=== PATIENT | male | born 1980 | race Caucasian/White ===

== ENCOUNTER 2019-03-23 12:39 | Outpatient (CLI) | payer BC, SELFPAY ==
--- NOTE | 2019-03-23 13:12 | DI.RAD_ITS ---
EXAM: XR LUMBAR SPINE COMPLETE CLINICAL HISTORY: LOW BACK PAIN M54.5 TECHNIQUE: COMPARISON: LUMBAR SPINE COMPLETE from 10/22/2015 FINDINGS: Five views were obtained. The SI joints are well maintained bilaterally. No evidence of spondylolys is or spondylolisthesis. Loss of disc space height noted at L4-5 and L5-S1. Prominent hypertrophic spurring of the endplates also noted at these levels. Moderate facet hypertrophic degenerative paulino es noted throughout the lumbar region. IMPRESSION: Degenerative changes as described above, most prominent at L4-5 and L5-S1.
== END 2019-03-23 12:59 ==
PROVIDERS: PCP Nurse Practitioner Family; Visit Provider Nurse Practitioner Family
DX: M54.5 Low back pain (principal); M47.817 Spondylosis without myelopathy or radiculopathy, lumbosacral region
CPT/HCPCS: 72110

== ENCOUNTER → 2023-02-07 16:25 | Outpatient (CLI) | payer BC, SELFPAY ==
--- NOTE | 2023-02-07 | DI.RAD_ITS ---
Exam(s) XR FOOT RT COMPLETE EXAM: XR FOOT RT COMPLETE CLINICAL HISTORY: RT FOOT PAIN, M79.671, TENDERNESS AND BRUISING AT BASE OF 5TH METATARSAL. TECHNIQUE: 2D digital imaging was performed. COMPARISON: No exams were available for comparison FINDINGS: 3 views No evidence of acute fracture or diastasis of the Lisfranc joint. There is an accessory ossicle with in the Lisfranc joint space. This is known as os intermetatarsale. Accessory ossicle or sesamoid bone also noted on the medial aspect of the foot adjacent to navicular tuberosity. This is not a fracture. No osseous lesions nor erosions. Bone density normal. IMPRESSION: No acute osseous findings in the foot. DATA REPOSITORY: RADIATION DOSE DELIVERED:
== END ==
PROVIDERS: PCP Nurse Practitioner Family; Visit Provider Family Medicine
DX: M79.671 Pain in right foot (principal)
CPT/HCPCS: 73630